=== PATIENT | male | born 2000 | race Caucasian/White ===

== ENCOUNTER 2019-10-15 17:49 | Emergency (ER) | payer OTHER ==
[~2019-10-15] VITALS: Ht 185.4 cm; Wt 93.2 kg
[2019-10-15 18:16] VITALS: BP 136/78; TEMP 98.3
[2019-10-15 19:55] VITALS: PULSE 78
== END 2019-10-15 19:44 | disposition home or self-care (01) ==
LOC: COL.ER 17:49
DX: S43.101A Unspecified dislocation of right acromioclavicular joint, initial encounter (principal); S62.232A Other displaced fracture of base of first metacarpal bone, left hand, initial encounter for closed fracture; W19.XXXA Unspecified fall, initial encounter